=== PATIENT | female | born 1960 | race American Indian/Alaskan Native ===

== ENCOUNTER 2024-03-04 04:26 | Outpatient (CLI) | payer MEDICARE, OTHER, SELFPAY | END 2024-03-04 04:27 | disposition home or self-care (01) | LOC: AMB 03-14 04:00 | PROVIDERS: Visit Provider Internal Medicine | DX: I26.92 Saddle embolus of pulmonary artery without acute cor pulmonale (principal) | CPT/HCPCS: A0425; A0433 ==